=== PATIENT | male | born 1970 | race Caucasian/White ===

== ENCOUNTER → 2020-04-04 14:51 | Outpatient (CLI) | payer OTHER, SELFPAY ==
--- NOTE | 2020-04-04 14:56 | DI.ECHO.S_ITS ---
[place] +---------+ [facility] +---------+ : : [address] [address] : : : : [id number] : : : : Phone: [phone]+ Echocardiogram Report + + :Name: VALERIE THOMPSON Study Date: 04/04/2020 Height: 68 in : :[facility] Weight: 200 lb : : Gender: Male BSA: 2.0 m2 : :: 1970 Age: 50 yrs BP: 140/86 mmHg: :Reason For Study: CORRECTED CONGENITAL MALFORMATION : :Ordering Physician: JOE, : :MILVIA Performed By: Melina Doshi : :Referring: MILVIA DIAZ : + + Interpretation Summary The left ventricle is normal in size and wall thickness. The ejection fraction is estimated to be 60-65%. The right ventricle is normal in size and function. Right ventricular size has decreased since the prior echo exam. Post transcutaneous ASD closure on 01/13/20. No evidence of residual shunt. No significant valvular pathology seen. The IVC is of normal diameter and collapses greater than 50% with a sniff. This suggests a low right atrial pressure of 3 mm Hg. Previously right atrial pressure was about 8 mmHg. Procedure: A two-dimensional transthoracic echocardiogram with color flow and Doppler was performed in limited views only to assess history of ASD closure.. Comparison is made with the echocardiogram of 02/05/2020. The study quality was technically adequate. The heart rate ranged between 57-64 bpm during the study. The patient was in normal sinus rhythm during the exam. Left Ventricle: The left ventricle is normal in size and wall thickness. The ejection fraction is estimated to be 60-65%. There has been no significant change since the previous exam. There are no focal wall motion abnormalities. Right Ventricle: The right ventricle is normal in size and function. Right ventricular size has decreased since the prior echo exam. Atria: Right atrial size is normal. The right atrium has mildly decreased in size since the prior echo exam. Post transcutaneous ASD closure on 01/13/20. No evidence of residual shunt. Aortic Valve: The aortic valve is trileaflet. The aortic valve opens well. Tricuspid Valve: The tricuspid valve is normal. There is trace tricuspid regurgitation. Compared to the prior echo exam, there has been a decrease in TR severity. Pulmonary artery pressures cannot be estimated because of the lack of a measurable TR jet velocity. Great Vessels: The IVC is of normal diameter and collapses greater than 50% with a sniff. This suggests a low right atrial pressure of 3 mm Hg. Pericardium/ Pleura There is no pericardial effusion. There is no pleural effusion. MMode/2D Measurements & Calculations LVIDd: 4.7 cm LA A4 area: 19.3 cm2 LVIDs: 2.9 cm LA length (vol): 5.2 cm FS: 37.9 % IVSd: 0.88 cm LVPWd: 0.91 cm LV lal. diameter/BSA (cm/m^2): 2.3 LV sys. diameter/BSA (cm/m^2): 1.4 RA long axis: 4.9 cm RVD1 (basal): 3.4 cm RA area: 15.3 cm2 TAPSE: 1.9 cm RA vol: 40.0 ml RA : 19.6 ml/m2 IVC diam: 1.4 cm Reading Physician:05:55 PM
== END ==
PROVIDERS: Referring Provider Internal Medicine Cardiovascular Disease; Visit Provider Internal Medicine Cardiovascular Disease
DX: Z09 Encounter for follow-up examination after completed treatment for conditions other than malignant neoplasm (principal); Z87.74 Personal history of (corrected) congenital malformations of heart and circulatory system
CPT/HCPCS: 93307

== ENCOUNTER → 2020-04-14 12:47 | Outpatient (CLI) | payer OTHER, SELFPAY ==
--- NOTE | 2020-04-14 12:49 | DI.MRI.S_ITS ---
PROCEDURE: MR LUMBAR SPINE WO CON INDICATIONS: Low back pain TECHNIQUE: Noncontrast sagittal T1 spin echo and T2 fast echo, sagittal STIR, axial T1 and T2 fast spin echo through the lumbar spine. In cases with scoliosis, additional coronal T2 fast spin echo may be performed. COMPARISON: [facility] [place], CR, XR LUMBAR SPINE FLEXION EXTENSION, 04/05/2020, 15:32. [facility] Outside Film, MR, MR LUMBAR SPINE WITHOUT CONTRAST, 08/03/2014, 16:29. [facility] Outside Film, MR, MR LUMBAR SPINE WITHOUT CONTRAST, 01/28/2013, 7:46. FINDINGS: Image quality: Excellent. Alignment and Curvature: There is trace retrolisthesis of L1 on L2, L2 on L3, L3 on L4. Bone Marrow: Marrow is of normal overall signal. No acute vertebral body compression fractures. Spinal Cord: Conus medullaris terminates at the L1 level. Visualized cord demonstrates normal signal and size. Paraspinous Soft Tissues: No paravertebral masses. Discs: Moderate to severe desiccation is present throughout the lumbar spine most severe at L1-L2. L1-L2: Mild disc bulge with minimal spinal stenosis. [id number] left foraminal narrowing. Minimal epidural lipomatosis. Minimal interval progression. L2-L3: Mild disc bulge with minimal spinal stenosis. Moderate to severe left and moderate right foraminal narrowing with facet and ligamentum flavum hypertrophy. Overall appearance is mildly progressive compared to prior exam. L3-L4: Mild disc bulge without spinal stenosis. Moderate to severe right and moderate left foraminal narrowing with facet and ligamentum flavum hypertrophy. Minimal progression is noted. L4-L5: Mild disc bulge with mild spinal stenosis. Moderate bilateral foraminal narrowing with facet and ligamentum flavum hypertrophy. No interval change. L5-S1: Mild disc bulge with mild spinal stenosis. Mild bilateral foraminal narrowing with facet hypertrophy. No interval change. IMPRESSION: 1. Multilevel degenerative changes with mild areas of interval progression as noted above. 2. Mild spinal stenosis is present at L4-5 secondary to disc bulge. 3. Foraminal narrowing is most notable at L2-3 and L3-4 secondary to facet arthropathy with contributing effect of retrolisthesis. Dictated by: Veronica Butler M.D. on 04/14/2020 at 14:54 Approved by: Veronica Butler M.D. on 04/14/2020 at 15:03
== END ==
PROVIDERS: Referring Provider Orthopaedic Surgery Orthopaedic Surgery of the Spine; Visit Provider Orthopaedic Surgery Orthopaedic Surgery of the Spine
DX: M48.061 Spinal stenosis, lumbar region without neurogenic claudication (principal); M51.26 Other intervertebral disc displacement, lumbar region; M43.16 Spondylolisthesis, lumbar region
CPT/HCPCS: 72148

== ENCOUNTER → 2020-06-27 09:47 | Outpatient (CLI) | payer OTHER, SELFPAY ==
[2020-06-27 11:02] LABS: COVID19 -Nasal RAPID Negative (Negative)
== END ==
PROVIDERS: Visit Provider Physician Assistant
DX: Z01.812 Encounter for preprocedural laboratory examination (principal); Z20.822 Contact with and (suspected) exposure to COVID-19
CPT/HCPCS: 87635

== ENCOUNTER 2020-06-29 14:32 | Day surgery (SDC) | payer OTHER, SELFPAY ==
--- NOTE | 2020-06-29 14:34 | PM.PREOP ---
Pre-operative Note COVID-19 COVID-19 status: Negative Interval Note History & Physical reviewed/Exam performed by Physician: Yes Changes to H&P: No ASA Class (for procedural sedation): II
--- NOTE | 2020-06-29 15:06 | PM.OP.ENDO ---
Operative Date/Time/Diagnoses Date of procedure: 06/29/20 Pre-op diagnosis: See indication and findings Procedure & Clinicians Study performed: Colonoscopy Same procedure as scheduled: Yes Indications: Screening. First colonoscopy Procedure Notes Procedure in detail: After informed consent was obtained patient was placed in left lateral decubitus position. Video colonoscope was introduced the rectum slowly advanced to the cecum. Preparation was good. On slow withdrawal mucosa was carefully examined. The scope was removed. The patient of the procedure well. Blood loss none Complications none Sedation - MAC Findings 1. Normal colonoscopy to cecum Patient should have follow-up colonoscopy in 10 years.
[2020-06-29 15:10] VITALS: BP 114/75; PULSE 89; RESP 16; TEMP 36.5; O2SAT 100; BMI 30.4
[2020-06-29] MEDS: LACTATED RINGERS 1,000 ML 100 ML IV (15:18)
[2020-06-29 16:12] VITALS: BP 89/56; PULSE 78; RESP 12; TEMP 36.6; O2SAT 93
[2020-06-29 16:17] VITALS: BP 101/75; PULSE 91; RESP 18; TEMP 37; O2SAT 96
== END 2020-06-29 16:35 | disposition home or self-care (01) ==
PROVIDERS: Referring Provider Internal Medicine Gastroenterology; Visit Provider Internal Medicine Gastroenterology
PROC: 0DJD8ZZ Inspection of Lower Intestinal Tract, Via Natural or Artificial Opening Endoscopic (ICD-10-PCS; CPT 45378; principal; 2020-06-29 16:00)
DX: Z12.11 Encounter for screening for malignant neoplasm of colon (principal); I10 Essential (primary) hypertension; E78.5 Hyperlipidemia, unspecified; Q21.1 Atrial septal defect; Z86.73 Personal history of transient ischemic attack (TIA), and cerebral infarction without residual deficits
CPT/HCPCS: 45378; J2704

== ENCOUNTER → 2021-04-28 08:23 | Outpatient (CLI) | payer OTHER, SELFPAY ==
--- NOTE | 2021-04-28 08:31 | DI.CT.S_ITS ---
PROCEDURE: CT CERVICAL SPINE WO CON INDICATIONS: Radiculopathy, cervical region TECHNIQUE: Noncontrast 3 mm thick sections acquired from the skull base to the T4 level. Sagittal and coronal reformats were then constructed. For radiation dose reduction, the following was used: automated exposure control, adjustment of mA and/or kV according to patient size. COMPARISON: [facility] Outside Film, MR, MR CERVICAL SPINE WITHOUT CONTRAST, 11/21/2011, 8:43. [facility], MR, C-SPINE WITHOUT CONTRAST, 07/14/2015, 7:11. FINDINGS: Image quality: There is artifact associated with the metallic hardware. This examination is somewhat limited by quantum mottle artifact. Bones: No fractures or dislocations. Visualized superior ribs are intact. An anteriorly placed fixation device is seen at C5-C6. No findings of hardware failure or hardware loosening are seen. At C4-C5, there is moderate loss of disc height. Partial bridging of anterior osteophytes can be seen. Mild posteriorly directed endplate osteophytes are seen. At C6-C7, there is at least moderate disc space narrowing with associated bridging anterior osteophytes and mild posteriorly projected endplate osteophytes. Soft tissues: Prevertebral soft tissues are normal in thickness. No paravertebral hematomas. No apical pneumothoraces. IMPRESSION: Unremarkable C5-C6 postoperative hardware. Focal degenerative change is seen at C4-C5 and C6-C7. Dictated by: Isaías Paige M.D. on 04/28/2021 at 8:24 Approved by: Isaías Paige M.D. on 04/28/2021 at 8:25
== END ==
PROVIDERS: Referring Provider Physician Assistant Medical; Visit Provider Physician Assistant Medical
DX: M54.12 Radiculopathy, cervical region (principal)
CPT/HCPCS: 72125

== ENCOUNTER → 2021-10-17 06:28 | Outpatient (CLI) | payer OTHER, SELFPAY ==
--- NOTE | 2021-10-17 06:30 | DI.MRI.S_ITS ---
PROCEDURE: MR CERVICAL SPINE WO CON INDICATIONS: CERVICAL SPONDYLOSIS TECHNIQUE: Noncontrast sagittal T1 spin echo and T2 fast spin echo, sagittal STIR, foraminal oblique sagittal T2 fast spin echo, and axial gradient echo and T2 fast spin echo through the cervical spine. COMPARISON: [facility] Outside Film, MR, MR CERVICAL SPINE WITHOUT CONTRAST, 11/21/2011, 8:43. [facility], MR, C-SPINE WITHOUT CONTRAST, 07/14/2015, 7:11. [facility], CT, CT CERVICAL SPINE WO CON, 04/28/2021, 8:28. FINDINGS: Image quality: This examination is limited by involuntary motion artifact. There is artifact associated with the metallic hardware. Alignment and Curvature: There is normal bony alignment. Bone Marrow: Marrow demonstrates normal overall signal. Spinal Cord: Visualized spinal cord has normal size and signal. No cerebellar tonsillar herniation. Paraspinous Soft Tissues: No paravertebral masses. Prevertebral soft tissues are normal in thickness. C2-C3: The disc height is well-preserved. Loss of disc signal is seen at this level. A mild degree of generalized disc osteophyte complex is seen. There is a mild central disc osteophyte protrusion seen. Mild to moderate facet hypertrophy is seen. No significant neural foraminal or central canal narrowing can be seen. The central disc osteophyte protrusion is progressed compared to 2016. C3-C4: The disc height is well-preserved. Loss of disc signal is seen at this level. At least moderate disc osteophyte complex is seen. There is a mild central disc osteophyte protrusion seen. Moderate facet hypertrophy is seen on the left and there is [id number]-eg-vciuglas facet hypertrophy seen on the right. Moderate to severe bilateral neural foraminal narrowing is seen. Moderate central canal narrowing is seen. There is associated mass effect upon the ventral spinal cord. These imaging findings have progressed compared to the prior study. C4-C5: Moderate loss of disc height is seen. Loss of disc signal is seen. Moderate generalized disc osteophyte complex is seen. There is a mild central disc osteophyte protrusion seen. At least moderate facet hypertrophy is seen. There is moderate to severe bilateral neural narrowing. Moderate central canal narrowing is seen. There is associated mass effect upon the ventral spinal cord. These degenerative changes are more prominent than in 2016. C5-C6: Postoperative changes are seen at this level. Moderate generalized disc osteophyte complex is seen. Moderate facet joint hypertrophy is seen. There is at least moderate right-sided and moderate left-sided neural foraminal narrowing. No significant central canal narrowing is seen. When comparison is made with the prior images, these findings are similar. C6-C7: At least moderate loss of disc height and disc signal can be seen. Reactive marrow endplate changes are seen, which are hyperintense on T1-weighted and T2-weighted imaging and most consistent with fatty metaplasia (Modic type II changes). At least moderate disc osteophyte complex is seen. Mild to moderate facet hypertrophy is seen at this level. Moderate to severe bilateral neural foraminal narrowing can be seen, right worse than left. Moderate central canal narrowing is seen. There is associated mass effect upon the ventral spinal cord. When comparison is made with the prior images, these findings are similar. C7-T1: Moderate loss of disc height is seen. Loss of disc signal is seen. Moderate generalized disc osteophyte complex is seen. Moderate facet joint hypertrophy is seen. There is moderate to severe bilateral neural foraminal narrowing seen, with an associated a degree of compression seen upon the exiting nerve roots. Mild to moderate central canal narrowing is seen. The degree of neural foraminal narrowing has progressed compared to 2016. IMPRESSION: Multiple levels of cervical spine degenerative change are seen, which have overall progressed compared to 2016. C5-C6 fixation hardware present. Dictated by: Isaías Paige M.D. on 10/17/2021 at 9:25 Approved by: Isaías Paige M.D. on 10/17/2021 at 9:31
== END ==
PROVIDERS: Referring Provider Physical Medicine & Rehabilitation; Visit Provider Physical Medicine & Rehabilitation
DX: M47.812 Spondylosis without myelopathy or radiculopathy, cervical region (principal)
CPT/HCPCS: 72141

== ENCOUNTER → 2021-12-21 07:30 | Outpatient (CLI) | payer OTHER, SELFPAY ==
--- NOTE | 2021-12-21 | DI.ECHO.S_ITS ---
[place] +---------+ Hospital +---------+ : : [address] [place] : : : : [id number] : : : : Phone: [phone]---------+ Echocardiogram Report + + :Name: VALERIE THOMPSON Study Date: 12/21/2021 Height: 68 in : :[facility] ReadingLocation: Weight: 210 lb : : Gender: Male BSA: 2.1 m2 : :: 1970 Age: 51 yrs BP: 140/89 mmHg: :Reason For Study: ASD Closure : :Ordering Physician: Last, : :Kareem Performed By: Ricky Oneil : :Referring: Kareem Ni : + + Interpretation Summary The left ventricle is normal in size and wall thickness. Left ventricular systolic function is normal. The ejection fraction is estimated to be 60-65%. There has been no significant change in LVEF since the previous exam. The right ventricle is normal in size and function. ASD closure device seen in the interatrial septum without residual shunting seen with color Doppler. The right ventricular systolic pressure is estimated to be at least 21 mmHg based on an estimated right atrial pressure of 3 mm Hg. Procedure: A two-dimensional transthoracic echocardiogram with color flow and Doppler was performed. The study quality was technically adequate. Comparison is made with the echocardiogram of 04/26/2021. The patient was in normal sinus rhythm during the exam. Left Ventricle: The left ventricle is normal in size and wall thickness. There is no thrombus. Left ventricular systolic function is normal. The ejection fraction is estimated to be 60-65%. There has been no significant change since the previous exam. There are no focal wall motion abnormalities. MV E/A: 1.2 Med Peak E' Ant: 8.1 cm/sec E/E' med: 11.5. Right Ventricle: The right ventricle is normal in size and function. Atria: Both atria are normal in size. There has been no significant change since the previous study. ASD closure device seen in the interatrial septum without residual shunting seen with color Doppler. Mitral Valve: The mitral valve is normal in structure and function. There is trace mitral regurgitation. Aortic Valve: The aortic valve is normal in structure and function. No aortic regurgitation is present. Tricuspid Valve: The tricuspid valve is normal in structure and function. There is mild tricuspid regurgitation. The right ventricular systolic pressure is estimated to be at least 21 mmHg based on an estimated right atrial pressure of 3 mm Hg. Compared to the prior echo exam, there has been no change in TR severity. Pulmonic Valve: The pulmonic valve is normal in structure and function. There is no pulmonic valvular regurgitation. Great Vessels: The aortic root is normal size. The dimensions of the ascending aorta are normal. The IVC is of normal diameter and collapses greater than 50% with a sniff. This suggests a low right atrial pressure of 3 mm Hg. Pericardium/ Pleura There is no pericardial effusion. There is no pleural effusion. MMode/2D Measurements & Calculations LVIDd: 4.5 cm LVOT diam: 2.2 cm LVIDs: 3.0 cm Ao root diam: 3.4 cm FS: 33.3 % asc Aorta Diam: 3.5 cm IVSd: 1.0 cm LVPWd: 1.0 cm LV lal. diameter/BSA (cm/m^2): 2.2 LV sys. diameter/BSA (cm/m^2): 1.4 LA dimension: 3.7 cm RA long axis: 5.4 cm LA A2 area: 14.3 cm2 LA A4 area: 20.0 cm2 LA length (vol): 4.9 cm LA vol: 49.3 ml LA vol index: 23.6 ml/m2 TAPSE_phl: 2.7 cm Doppler Measurements & Calculations Ao V2 max: 135.0 cm/sec LVOT Max Ant: 138.0 cm/sec Ao V2 mean: 88.1 cm/sec LV V1 max P.6 mmHg Ao max P.0 mmHg LV V1 VTI: 25.5 cm Ao mean P.0 mmHg CHRIS(I,D): 3.7 cm2 Ao V2 VTI: 26.1 cm CHRIS(V,D): 3.9 cm2 sev ratio: 0.98 CHRIS indexed to BSA (cm^2/m^2): 1.8 MV E max ant: 93.1 cm/sec TR max ant: 209.0 cm/sec MV A max ant: 78.6 cm/sec TR max P.5 mmHg MV E/A: 1.2 Med Peak E' Ant: 8.1 cm/sec E/E' med: 11.5 Lat Peak E' Ant: 12.2 cm/sec E/E' lat: 7.6 E/e' average: 9.5 MV dec time: 0.19 sec SV(LVOT): 96.9 ml AV VR_phl: 1.0 CHRIS(VTI)/BSA_phl: 1.8 MV P1/2t-pr_phl: 54.0 msec Reading Physician:02:42 PM
== END ==
PROVIDERS: Referring Provider Family Medicine; Visit Provider Family Medicine
DX: I07.1 Rheumatic tricuspid insufficiency (principal); Q21.1 Atrial septal defect
CPT/HCPCS: 93306